=== PATIENT | male | born 1960 | race Caucasian/White ===

== ENCOUNTER 2019-02-01 07:38 | Emergency (ER) | payer OTHER ==
[~2019-02-01] VITALS: Ht 182.9 cm; Wt 124.7 kg
[2019-02-01 08:09] VITALS: BP 140/92
[2019-02-01] MEDS ORDERED: METHOCARBAMOL 500 MG TAB PO ONE (09:15)
[2019-02-01] MEDS: ACETAMINOPHEN 500 MG TAB PO ONE ×2 (09:21→09:24)
== END 2019-02-01 11:21 | disposition home or self-care (01) ==
LOC: ER 07:44
DX: M25.512 Pain in left shoulder (principal); M54.5 Low back pain; M54.2 Cervicalgia; V89.0XXA Person injured in unspecified motor-vehicle accident, nontraffic, initial encounter; Y93.89 Activity, other specified; Y99.0 Civilian activity done for income or pay; Y92.69 Other specified industrial and construction area as the place of occurrence of the external cause
CPT/HCPCS: 72040; 72100; 73030